=== PATIENT | female | born 1965 | race Asian ===

== ENCOUNTER 2022-06-06 16:38 | Outpatient (CLI) | payer OTHER, SELFPAY | END 2022-06-06 16:39 | disposition home or self-care (01) | LOC: FRMREF 16:39 | PROVIDERS: Visit Provider Dermatology | DX: L40.9 Psoriasis, unspecified (principal) | CPT/HCPCS: 80053 ==

== ENCOUNTER 2022-06-24 16:37 | Outpatient (CLI) | payer OTHER, SELFPAY | END 2022-06-24 16:38 | disposition home or self-care (01) | PROVIDERS: Visit Provider Family Medicine | DX: Z00.00 Encounter for general adult medical examination without abnormal findings (principal); E03.0 Congenital hypothyroidism with diffuse goiter; L40.9 Psoriasis, unspecified; Z13.6 Encounter for screening for cardiovascular disorders; Z12.4 Encounter for screening for malignant neoplasm of cervix | CPT/HCPCS: 80053; 80061; 86803 ==

== ENCOUNTER 2022-07-04 16:46 | Outpatient (CLI) | payer OTHER, SELFPAY | END 2022-07-04 16:47 | disposition home or self-care (01) | LOC: NFLDREF 07-05 00:49 | PROVIDERS: Visit Provider Family Medicine | DX: I10 Essential (primary) hypertension (principal); Z23 Encounter for immunization; Z79.631 Long term (current) use of antimetabolite agent; L40.9 Psoriasis, unspecified; R03.0 Elevated blood-pressure reading, without diagnosis of hypertension | CPT/HCPCS: 80076 ==

== ENCOUNTER 2022-12-12 15:45 | Outpatient (CLI) | payer OTHER, SELFPAY | END 2022-12-12 15:46 | disposition home or self-care (01) | LOC: NFLDREF 12-20 09:44 | PROVIDERS: PCP Family Medicine; Referring Provider Family Medicine; Visit Provider Dermatology | DX: L40.9 Psoriasis, unspecified (principal); Z79.631 Long term (current) use of antimetabolite agent | CPT/HCPCS: 80053 ==

== ENCOUNTER 2023-08-28 14:28 | Outpatient (CLI) | payer BC, SELFPAY | END 2023-08-28 14:29 | disposition home or self-care (01) | PROVIDERS: PCP Family Medicine; Visit Provider Family Medicine | DX: Z00.00 Encounter for general adult medical examination without abnormal findings (principal); I10 Essential (primary) hypertension; Z13.6 Encounter for screening for cardiovascular disorders; Z13.1 Encounter for screening for diabetes mellitus | CPT/HCPCS: 80053; 80061; 82043; 82570 ==

== ENCOUNTER 2024-01-05 22:30 | Outpatient (REF) | payer BC, SELFPAY ==
[2024-01-05 23:46] LABS: Albumin* 4.2 g/dL (3.3-5.0)
[2024-01-05 23:47] LABS: Basophils Absolute Auto 0.03 K/uL (0.00-0.30); Basophils Percent Auto 0.6 % (0.0-3.0); Chloride* 107 mmol/L (96-114); Eosinophils Percent Auto 14.5 % (0.0-7.0); Hematocrit 37.9 % (33.0-51.0); Hemoglobin* 12.2 gm/dL (12.0-16.0); Lymphocytes Percent Auto 23.6 % (20-44); Mean Corpuscular HGB Conc 32 gm/dL (32-36); Mean Corpuscular Hemoglobin 32 pg (26-34); Mean Corpuscular Volume 100 fL (80-100); Monocytes Percent Auto 8.1 % (0.0-11.0); Neutrophils Absolute Auto 2.71 K/uL (1.7-7.0); Neutrophils Percent Auto 53.2 % (42.0-72.0); Platelet Count* 195 K/uL (140-440); Potassium* 4.1 mmol/L (3.6-5.1); RDW Coefficient of Variation % 13.4 % (11.5-15.5); Red Blood Count 3.79 m/uL (4.00-5.20); Sodium* 139 mmol/L (135-149); White Blood Count* 5.09 K/uL (4.50-11.00)
[2024-01-05 23:49] LABS: Bilirubin Total* 0.3 mg/dL (0.1-1.5); Creatinine* 0.7 mg/dL (0.5-1.5); Estimated Glomerular Filt Rate 100 ml/min
[2024-01-05 23:50] LABS: Alanine Aminotransferase* 133 U/L (4-35); Alkaline Phosphatase* 62 U/L (40-150); Anion Gap 4 mEq/L (7-15); Aspartate Amino Transferase* 56 U/L (12-35); Blood Urea Nitrogen* 21 mg/dL (7-30); Carbon Dioxide* 28 mmol/L (20-32); Glucose* 91 mg/dL (60-115); Total Protein* 6.9 g/dL (6.0-8.3)
[2024-01-06 00:28] LABS: Slide Review Reflex No
== END 2024-01-05 22:31 | disposition home or self-care (01) ==
LOC: NPINS 22:30
PROVIDERS: PCP Family Medicine; Visit Provider Dermatology
DX: L40.0 Psoriasis vulgaris (principal)
CPT/HCPCS: 80053; 85025

== ENCOUNTER 2024-04-05 18:23 | Outpatient (REF) | payer BC, SELFPAY ==
[2024-04-05 19:22] LABS: Basophils Absolute Auto 0.02 K/uL (0.00-0.30); Basophils Percent Auto 0.4 % (0.0-3.0); Eosinophils Percent Auto 7.6 % (0.0-7.0); Hematocrit 38.6 % (33.0-51.0); Hemoglobin* 12.6 gm/dL (12.0-16.0); Immature Granulocytes Abs Auto 0.01 K/uL (0.00-0.30); Immature Granulocytes Pct Auto 0.2 %; Lymphocytes Absolute Auto 1.27 K/uL (0.90-2.90); Lymphocytes Percent Auto 28.2 % (20-44); Mean Corpuscular HGB Conc 33 gm/dL (32-36); Mean Corpuscular Hemoglobin 33 pg (26-34); Mean Corpuscular Volume 101 fL (80-100); Neutrophils Percent Auto 55.6 % (42.0-72.0); Platelet Count* 204 K/uL (140-440); RDW Coefficient of Variation % 13.6 % (11.5-15.5); Red Blood Count 3.83 m/uL (4.00-5.20)
[2024-04-05 19:49] LABS: Slide Review Reflex No
[2024-04-05 19:52] LABS: Chloride* 106 mmol/L (96-114); Sodium* 139 mmol/L (135-149)
[2024-04-05 19:53] LABS: Potassium* 4.2 mmol/L (3.6-5.1)
[2024-04-05 19:55] LABS: Alkaline Phosphatase* 61 U/L (40-150); Anion Gap 3 mEq/L (7-15); Aspartate Amino Transferase* 29 U/L (12-35); Bilirubin Total* 0.3 mg/dL (0.1-1.5); Blood Urea Nitrogen* 24 mg/dL (7-30); Carbon Dioxide* 30 mmol/L (20-32); Creatinine* 1.1 mg/dL (0.5-1.5); Estimated Glomerular Filt Rate 58 ml/min; Glucose* 95 mg/dL (60-115); Total Protein* 6.6 g/dL (6.0-8.3)
[2024-04-05 19:56] LABS: Alanine Aminotransferase* 44 U/L (4-35); Calcium* 8.9 mg/dL (8.4-10.6)
== END 2024-04-05 18:24 | disposition home or self-care (01) ==
LOC: NPINS 18:23
PROVIDERS: PCP Family Medicine; Visit Provider Dermatology
DX: L40.0 Psoriasis vulgaris (principal); Z79.899 Other long term (current) drug therapy
CPT/HCPCS: 80053; 85025

== ENCOUNTER 2024-07-13 14:49 | Outpatient (CLI) | payer BC, SELFPAY ==
[2024-07-13 21:39] LABS: Basophils Absolute Auto 0.02 K/uL (0.00-0.30); Basophils Percent Auto 0.4 % (0.0-3.0); Hematocrit 38.3 % (33.0-51.0); Hemoglobin* 12.7 gm/dL (12.0-16.0); Lymphocytes Absolute Auto 1.58 K/uL (0.90-2.90); Lymphocytes Percent Auto 29.8 % (20-44); Mean Corpuscular HGB Conc 33 gm/dL (32-36); Mean Corpuscular Hemoglobin 33 pg (26-34); Mean Corpuscular Volume 101 fL (80-100); Monocytes Percent Auto 10.2 % (0.0-11.0); Neutrophils Absolute Auto 2.32 K/uL (1.7-7.0); Neutrophils Percent Auto 43.6 % (42.0-72.0); Platelet Count* 189 K/uL (140-440); RDW Coefficient of Variation % 13.5 % (11.5-15.5); Red Blood Count 3.81 m/uL (4.00-5.20); White Blood Count* 5.31 K/uL (4.50-11.00)
[2024-07-13 21:47] LABS: Slide Review Reflex No
[2024-07-13 21:56] LABS: Chloride* 104 mmol/L (96-114); Potassium* 4.2 mmol/L (3.6-5.1); Sodium* 139 mmol/L (135-149)
[2024-07-13 21:59] LABS: Alanine Aminotransferase* 21 U/L (4-35); Alkaline Phosphatase* 70 U/L (40-150); Anion Gap 5 mEq/L (7-15); Aspartate Amino Transferase* 32 U/L (12-35); Bilirubin Total* 0.5 mg/dL (0.1-1.5); Blood Urea Nitrogen* 17 mg/dL (7-30); Calcium* 8.9 mg/dL (8.4-10.6); Carbon Dioxide* 30 mmol/L (20-32); Estimated Glomerular Filt Rate 65 ml/min; Glucose* 82 mg/dL (60-115); Total Protein* 6.7 g/dL (6.0-8.3)
== END 2024-07-13 14:50 | disposition home or self-care (01) ==
LOC: NPINS 14:52
PROVIDERS: PCP Family Medicine; Visit Provider Dermatology
DX: L40.0 Psoriasis vulgaris (principal); Z79.899 Other long term (current) drug therapy
CPT/HCPCS: 80053; 85025

== ENCOUNTER 2024-10-11 15:15 | Outpatient (CLI) | payer BC, SELFPAY ==
[2024-10-11 21:57] LABS: Hematocrit 35.9 % (33.0-51.0); Hemoglobin* 11.9 gm/dL (12.0-16.0); Immature Granulocytes Abs Auto 0.00 K/uL (0.00-0.30); Immature Granulocytes Pct Auto 0.0 %; Lymphocytes Absolute Auto 1.30 K/uL (0.90-2.90); Mean Corpuscular HGB Conc 33 gm/dL (32-36); Mean Corpuscular Hemoglobin 33 pg (26-34); Mean Corpuscular Volume 100 fL (80-100); RDW Coefficient of Variation % 13.4 % (11.5-15.5); Red Blood Count 3.59 m/uL (4.00-5.20); White Blood Count* 4.44 K/uL (4.50-11.00)
[2024-10-11 22:08] LABS: Slide Review Reflex No
[2024-10-11 22:27] LABS: Albumin* 3.6 g/dL (3.3-5.0); Chloride* 109 mmol/L (96-114)
[2024-10-11 22:28] LABS: Potassium* 4.0 mmol/L (3.6-5.1); Sodium* 140 mmol/L (135-149)
[2024-10-11 22:30] LABS: Alanine Aminotransferase* 23 U/L (4-35); Alkaline Phosphatase* 66 U/L (40-150); Anion Gap 4 mEq/L (7-15); Aspartate Amino Transferase* 32 U/L (12-35); Bilirubin Total* 0.3 mg/dL (0.1-1.5); Blood Urea Nitrogen* 18 mg/dL (7-30); Calcium* 8.5 mg/dL (8.4-10.6); Carbon Dioxide* 27 mmol/L (20-32); Creatinine* 1.1 mg/dL (0.5-1.5); Estimated Glomerular Filt Rate 58 ml/min; Glucose* 93 mg/dL (60-115); Total Protein* 6.4 g/dL (6.0-8.3)
== END 2024-10-11 15:16 | disposition home or self-care (01) ==
LOC: NPINS 15:16
PROVIDERS: PCP Family Medicine; Visit Provider Dermatology
DX: L40.0 Psoriasis vulgaris (principal); Z79.899 Other long term (current) drug therapy
CPT/HCPCS: 80053; 85025

== ENCOUNTER 2025-01-14 14:47 | Outpatient (CLI) | payer BC, SELFPAY ==
[2025-01-14 21:35] LABS: Hematocrit* 37.4 % (33.0-51.0); Hemoglobin* 12.3 gm/dL (12.0-16.0); Immature Granulocytes Abs Auto 0.00 K/uL (0.00-0.30); Immature Granulocytes Pct Auto 0.0 %; Lymphocytes Absolute Auto 1.47 K/uL (0.90-2.90); Mean Corpuscular HGB Conc 33 gm/dL (32-36); Mean Corpuscular Hemoglobin 33 pg (26-34); Mean Corpuscular Volume 100 fL (80-100); RDW Coefficient of Variation % 13.3 % (11.5-15.5); Red Blood Count* 3.75 m/uL (4.00-5.20); White Blood Count* 5.05 K/uL (4.50-11.00)
[2025-01-14 21:43] LABS: Slide Review Reflex No
[2025-01-14 21:45] LABS: Albumin* 3.8 g/dL (3.3-5.0); Chloride* 103 mmol/L (96-114); Sodium* 135 mmol/L (135-149)
[2025-01-14 21:46] LABS: Potassium* 3.9 mmol/L (3.6-5.1)
[2025-01-14 21:48] LABS: Alanine Aminotransferase* 48 U/L (4-35); Alkaline Phosphatase* 79 U/L (40-150); Anion Gap 3 mEq/L (7-15); Aspartate Amino Transferase* 43 U/L (12-35); Bilirubin Total* 0.4 mg/dL (0.1-1.5); Blood Urea Nitrogen* 24 mg/dL (7-30); Carbon Dioxide* 29 mmol/L (20-32); Creatinine* 1.0 mg/dL (0.5-1.5); Estimated Glomerular Filt Rate 64 ml/min
[2025-01-14 21:49] LABS: Calcium* 9.1 mg/dL (8.4-10.6); Glucose* 99 mg/dL (60-115); Total Protein* 6.6 g/dL (6.0-8.3)
== END 2025-01-14 14:48 | disposition home or self-care (01) ==
LOC: NPINS 14:49
PROVIDERS: PCP Family Medicine; Visit Provider Dermatology
DX: L40.0 Psoriasis vulgaris (principal); Z79.899 Other long term (current) drug therapy
CPT/HCPCS: 80053; 85025

== ENCOUNTER 2025-02-07 16:36 | Outpatient (CLI) | payer BC, SELFPAY | END 2025-02-07 16:37 | disposition home or self-care (01) | LOC: NFLDREF 02-11 04:00 | PROVIDERS: PCP Family Medicine; Referring Provider Family Medicine; Visit Provider Family Medicine | DX: I10 Essential (primary) hypertension (principal); Z00.00 Encounter for general adult medical examination without abnormal findings | CPT/HCPCS: 80053; 80061; 82043; 82570 ==